=== PATIENT | female | born 1960 | race Two or more races ===

== ENCOUNTER 2018-09-24 10:28 | Outpatient (CLI) | payer OTHER ==
[~2018-09-24 10:28] MED LIST: OSTERA TABLET1 EACH; VITAMINA C; [UNRECOGNIZED DRUG - OTHER]
== END 2018-09-24 10:39 | disposition home or self-care (01) ==
LOC: RAD 10:28
DX: Z85.3 Personal history of malignant neoplasm of breast (principal); M54.89 Other dorsalgia

== ENCOUNTER → 2018-10-21 | Outpatient (CLI) | payer OTHER | END | disposition home or self-care (01) | LOC: NUCLEAR 08:00 | DX: R00.0 Tachycardia, unspecified (principal); R55 Syncope and collapse ==

== ENCOUNTER → 2018-10-21 | Outpatient (CLI) | payer OTHER | END | disposition home or self-care (01) | LOC: SONOGRAMA 09:57 | DX: E04.1 Nontoxic single thyroid nodule (principal); E03.8 Other specified hypothyroidism ==

== ENCOUNTER 2019-04-05 09:12 | Emergency (ER) | payer OTHER ==
[~2019-04-05] VITALS: Ht 175.3 cm; Wt 74.4 kg
[2019-04-05] MEDS ORDERED: AMOX-CLAV 875-1 EACH PO (14:14)
[2019-04-05] MEDS ORDERED: KETO10TA2 PO (14:14)
[2019-04-05] MEDS ORDERED: INTESTINEX680 M1 PO (14:14)
== END 2019-04-05 14:37 ==
LOC: ER 09:12
DX: L03.011 Cellulitis of right finger (principal); S61.051A Open bite of right thumb without damage to nail, initial encounter; W54.0XXA Bitten by dog, initial encounter; Y93.89 Activity, other specified; Y92.018 Other place in single-family (private) house as the place of occurrence of the external cause; Y99.8 Other external cause status

== ENCOUNTER 2019-04-07 13:05 | Inpatient (IN) | payer OTHER ==
[~2019-04-07] VITALS: Ht 167.6 cm; Wt 74.4 kg
[~2019-04-07 13:05] MED LIST changes: +AMOX-CLAV 875-1 EACH PO; +INTESTINEX680 M1 PO; +KETO10TA2 PO
[2019-04-08] MEDS ORDERED: VITAMIN C100 MG (08:12)
[2019-04-14] MEDS ORDERED: LEVAQUIN500 MG PO (09:40)
== END 2019-04-14 11:07 | disposition home or self-care (01) | DRG 603 ==
LOC: MEDJ 13:05
PROVIDERS: ADMIT Internal Medicine
PROC: B54MZZZ Ultrasonography of Right Upper Extremity Veins (ICD-10-PCS; principal; 2019-04-07)
PROC: BP3CZZZ Magnetic Resonance Imaging (MRI) of Right Hand/Finger Joint (ICD-10-PCS; 2019-04-09)
DX: L03.011 Cellulitis of right finger (principal); L03.113 Cellulitis of right upper limb; Z91.012 Allergy to eggs; Z85.3 Personal history of malignant neoplasm of breast
CPT/HCPCS: 73223

== ENCOUNTER 2019-08-14 14:08 | Emergency (ER) | payer OTHER ==
[~2019-08-14] VITALS: Ht 175.3 cm; Wt 69.9 kg
[~2019-08-14 14:08] MED LIST changes: +LEVAQUIN500 MG PO; +VITAMIN C100 MG
== END 2019-08-14 21:07 | disposition home or self-care (01) ==
LOC: ER 14:08
DX: R42 Dizziness and giddiness (principal); R11.11 Vomiting without nausea

== ENCOUNTER 2020-06-01 14:15 | Outpatient (CLI) | payer OTHER | END 2020-06-01 14:23 | disposition home or self-care (01) | LOC: RAD 14:15 | PROVIDERS: ATTEND Internal Medicine | DX: J44.1 Chronic obstructive pulmonary disease with (acute) exacerbation (principal) ==

== ENCOUNTER 2021-04-20 08:35 | Outpatient (CLI) | payer OTHER | END 2021-04-20 08:40 | disposition home or self-care (01) | LOC: PPH VACUNA 08:35 | PROVIDERS: ATTEND Emergency Medicine Pediatric Emergency Medicine | DX: Z23 Encounter for immunization (principal) ==

== ENCOUNTER 2021-07-10 08:22 | Outpatient (CLI) | payer OTHER | END 2021-07-10 14:52 | disposition home or self-care (01) | LOC: MAMO-SONO 08:22 | DX: N60.11 Diffuse cystic mastopathy of right breast (principal); N60.12 Diffuse cystic mastopathy of left breast; Z12.31 Encounter for screening mammogram for malignant neoplasm of breast; Z85.3 Personal history of malignant neoplasm of breast ==

== ENCOUNTER 2023-06-27 07:36 | Outpatient (CLI) | payer OTHER ==
[2023-06-27 08:45] LABS: HEMATOCRIT 37.7 % (36.0-45.00); HEMOGLOBIN 13.1 g/dL (12.0-15.00); MEAN CELL VOLUME 92.8 fL (80.00-100.00); MEAN CORPUSCULAR HEMOGLOBIN 32.2 pg (27.00-32.0); MEAN CORPUSCULAR HGB CONC 34.7 g/dl (32.0-36.0); PLATELET COUNT 162 K/uL (150-450); RED BLOOD COUNT 4.06 M/uL (4.00-6.00); RED CELL DISTRIBUTION WIDTH 13.3 % (11.5-14.5)
[2023-06-27 09:07] LABS: COL EPI 10 SECONDS (82-175)
[2023-06-27 09:24] LABS: PARTIAL THROMBOPLASTIN TIME 23.2 SECONDS (22.0-34.0); PROTHROMBIN TIME 10.5 SECONDS (9.0-11.5)
[2023-06-27 09:32] LABS: ALBUMIN 4.1 gm/dL (3.4-5.0); BILIRUBIN TOTAL 0.96 mg/dL (0.3-1.2); CALCIUM 9.9 mg/dL (8.5-10.1); CREATININE SERUM 0.69 mg/dL (0.55-1.02); GFR 85.65; GLOBULINA 3.1 G/DL (2.4-3.5); MAGNESIUM 2.1 mg/dL (1.8-2.4); POTASSIUM 4.01 mEq/L (3.5-5.1); TOTAL PROTEIN 7.2 gm/dL (6.4-8.2)
[2023-06-27 09:35] LABS: PH,URINE 6.5 (5.0-8.0); URINE APPEARANCE Clear; URINE BILIRRUBIN Negative (NEGATIVE); URINE BLOOD Negative; URINE COLOR Yellow; URINE GLUCOSE Negative (NEGATIVE); URINE LEUKOCYTE Trace; URINE NITRATE Negative; URINE PROTEIN Negative (NEGATIVE); URINE UROBILINOGEN 0.2 E.U./dl
[2023-06-27 09:40] LABS: URINE BACTERIA 16.3 uL (0.0-1933); URINE EPITHELIAL CELLS 2.1 uL (0.0-38.8); URINE RBC 12.3 uL (0.0-20.8); URINE WBC 7.2 uL (0.0-23.2)
== END 2023-06-27 07:37 | disposition home or self-care (01) ==
LOC: LAB 07:36
PROVIDERS: ATTEND Orthopaedic Surgery
DX: M85.9 Disorder of bone density and structure, unspecified (principal); E83.42 Hypomagnesemia; E56.1 Deficiency of vitamin K; D64.89 Other specified anemias; E88.89 Other specified metabolic disorders; D68.8 Other specified coagulation defects; N39.0 Urinary tract infection, site not specified; Z22.322 Carrier or suspected carrier of Methicillin resistant Staphylococcus aureus; Z76.89 Persons encountering health services in other specified circumstances; I10 Essential (primary) hypertension; I49.8 Other specified cardiac arrhythmias

== ENCOUNTER 2023-07-06 09:19 | Emergency (ER) | payer OTHER ==
[~2023-07-06] VITALS: Ht 172.7 cm; Wt 61.2 kg
[2023-07-06] MEDS ORDERED: NORFLEX100MG PO (11:27)
[2023-07-06] MEDS ORDERED: DICLOFENAC POTA50 MG PO (11:27)
== END 2023-07-06 12:11 | disposition home or self-care (01) ==
LOC: ER 09:20
DX: M54.30 Sciatica, unspecified side (principal); Z88.8 Allergy status to other drugs, medicaments and biological substances

== ENCOUNTER 2025-05-16 10:07 | Outpatient (CLI) | payer OTHER ==
[~2025-05-16 10:07] MED LIST changes: +DICLOFENAC POTA50 MG PO; +NORFLEX100MG PO
== END 2025-05-16 10:08 | disposition home or self-care (01) ==
LOC: NUCLEAR 10:07
PROVIDERS: ATTEND Internal Medicine
DX: R00.1 Bradycardia, unspecified (principal)